=== PATIENT | male | born 1995 | race Caucasian/White ===

== ENCOUNTER 2018-07-26 00:41 | Inpatient (IN) | payer SELFPAY ==
[2018-07-26] MEDS ORDERED: NS 0.9% 1000 ML* 1,000 ML IV ONE (01:44)
[2018-07-26] MEDS ORDERED: Diazepam SYRINGE* 5 MG/ML 2 ML SYRINGE (10 MG total) IV ONE ×2 (01:44→04:16)
[2018-07-26] MEDS ORDERED: Thiamine IV 100 MG, Folic Acid IV* 1 MG, Multiple Vitamin IV ADULT* 10 ML in D5NS 0.9% ... IV ONE (01:44)
[2018-07-26] MEDS ORDERED: Diazepam INJ (NF) 5 MG/ML 10 ML VIAL (50 MG TOTAL) IV ONE (02:10)
--- NOTE | 2018-07-26 02:18 | ED ---
Substance Abuse/Use - HPI Summary HPI Summary: This patient is a 23 year old M presenting to [facility] requesting a detox and states unfortunately I am an alcoholic. Pt states he needs to drink every 6 hours and is currently having withdrawals. Pt states his last drink was at 2000 tonight. The patient rates the pain 0/10 in severity. Patient reports headache, general malaise, and tremors. - History Of Current Complaint Chief Complaint: EDDetoxRequest Stated Complaint: DETOX Time Seen by Provider: 07/26/18 01:24 Hx Obtained From: Patient Onset/Duration of Drug/ETOH Abuse: Years Ingestion History: Type/Name Of Drug - etoh Overdose Characteristics: Oral Timing Of Abuse: Daily Severity Initially: Moderate Severity Currently: Moderate Associated Signs And Symptoms: Other: - headache, general malaise, and tremors. - Allergies/Home Medications Allergies/Adverse Reactions: Allergies Allergy/AdvReac Type Severity Reaction Status Date / Time No Known Allergies Allergy Verified 07/26/18 00:50 PMH/Surg Hx/FS Hx/Imm Hx Endocrine/Hematology History: Denies: Hx Bone Marrow Disease, Hx Systemic Lupus Erythematosus Cardiovascular History: Denies: Hx Atrial Fibrillation, Hx Coronary Artery Disease Respiratory History: Denies: Hx Chronic Obstructive Pulmonary Disease (COPD), Hx Lung Cancer, Hx Pulmonary Edema GI History: Denies: Hx Hiatal Hernia, Hx Irritable Bowel Sensory History: Denies: Hx Macular Degeneration Psychiatric History: Reports: Hx Substance Abuse - etoh Infectious Disease History: No Infectious Disease History: Denies: Traveled Outside the [place] in Last 30 Days - Family History Known Family History: Negative: Respiratory Disease, Seizure Disorder - Social History Alcohol Use: Daily Substance Use Type: Reports: None Smoking Status (MU): Never Smoked Tobacco Review of Systems Positive: Other - general malaise, and tremors. Positive: Headache All Other Systems Reviewed And Are Negative: Yes Physical Exam - Summary Physical Exam Summary: VITAL SIGNS: Reviewed. GENERAL: Patient is a well-developed and nourished male who is lying comfortable in the stretcher. Patient is not in any acute respiratory distress. HEAD AND FACE: No signs of trauma. No ecchymosis, hematomas or skull depressions. No sinus tenderness. EYES: PERRLA, EOMI x 2, No injected conjunctiva, no nystagmus. EARS: Hearing grossly intact. Ear canals and tympanic membranes are within normal limits. MOUTH: Oropharynx within normal limits. NECK: Supple, trachea is midline, no adenopathy, no JVD, no carotid bruit, no c- spine tenderness, neck with full ROM. CHEST: Symmetric, no tenderness at palpation LUNGS: Clear to auscultation bilaterally. No wheezing or crackles. CVS: tachy and regular rhythm, S1 and S2 present, no murmurs or gallops appreciated. ABDOMEN: Soft, non-tender. No signs of distention. No rebound no guarding, and no masses palpated. Bowel sounds are normal. EXTREMITIES: FROM in all major joints, no edema, no cyanosis or clubbing. There is a tremor in outstretched hands NEURO: Alert and oriented x 3. No acute neurological deficits. Speech is normal and follows commands. SKIN: Dry and warm Triage Information Reviewed: Yes Vital Signs On Initial Exam: Initial Vitals Temp Pulse Resp BP Pulse Ox 100.5 F 170 23 165/111 97 07/26/18 00:46 07/26/18 00:46 07/26/18 00:46 07/26/18 00:46 07/26/18 00:46 Vital Signs Reviewed: Yes Diagnostics - Vital Signs Vital Signs Temp Pulse Resp BP Pulse Ox 07/26/18 02:01 89 18 133/88 95 07/26/18 02:00 92 19 95 07/26/18 01:31 133 16 152/103 96 07/26/18 01:02 115 16 96 07/26/18 01:01 123 14 157/115 95 07/26/18 00:46 100.5 F 170 23 165/111 97 - Laboratory Result Diagrams: 07/26/18 02:18 07/26/18 02:17 Lab Statement: Any lab studies that have been ordered have been reviewed, and results considered in the medical decision making process. Course/Dx - Course Assessment/Plan: This patient is a 23 year old M presenting to [facility] requesting a detox and states unfortunately I am an alcoholic. Pt states he needs to drink every 6 hours and is currently having withdrawals. Pt states his last drink was at 2000 tonight. The patient rates the pain 0/10 in severity. Patient reports headache, general malaise, and tremors. The patient is experiencing withdrawal sx with a MANUEL of almost 400 so he will have to be admitted. Blood work obtained. In the ED course the patient was given IV fluids, valium, Ativan , and nicotine. We discussed patient care with Dr Zamarripa and the patient will be admitted. Patient will be admitted. The patient is agreeable with this plan - Diagnoses Provider Diagnoses: Alcohol intoxication - Physician Notifications Discussed Care Of Patient With: Sandra Zamarripa Time Discussed With Above Provider: 04:16 Instructed by Provider To: Admit As Inpatient Discharge - Sign-Out/Discharge Documenting (check all that apply): Patient Departure - admitted - Discharge Plan Condition: Fair Disposition: ADMITTED TO [facility] Referrals: No Primary Care Phys,NOPCP [Primary Care Provider] - - Attestation Statements Document Initiated by Scribe: Yes Documenting Scribe: Antonino Sharp Provider For Whom Scribe is Documenting (Include Credential): Tino Rose MD Scribe Attestation: Antonino Gabriel , scribed for Tino Rose MD on 07/26/18 at 0416.
[2018-07-26 02:26] LABS: ABS Basophils 0.1 10^3/ul (0-0.2); ABS Eosinophils 0 10^3/ul (0-0.6); ABS Lymphocytes 1.7 10^3/ul (1.0-4.8); ABS Monocytes 0.3 10^3/ul (0-0.8); ABS Neutrophils 1.9 10^3/ul (1.5-7.7); ABS Nucleated RBC 0 10^3/ul; Eosinophil % 0.6 % (0-6); Hematocrit 44 % (42-52); Hemoglobin 15.7 g/dl (14.0-18.0); Lymphocyte % 43.2 % (25-47); Mean Corpuscular HGB Conc 36 g/dl (31-36); Mean Corpuscular Hemoglobin 34 pg (27-31); Mean Corpuscular Volume 97 fL (80-94); Mean Platelet Volume 6.9 um3 (7.4-10.4); Nucleated Red Blood Cells % 0.1; Platelet Count 168 10^3/ul (150-450); Red Blood Count 4.57 10^6/ul (4.00-5.40); Red Cell Distribution Width 13 % (10.5-15)
[2018-07-26] MEDS ORDERED: LORazepam INJ* 2 MG/ML 1 ML VIAL ONE (02:33)
[2018-07-26 02:34] LABS: INR 0.89 (0.77-1.02)
[2018-07-26] MEDS ORDERED: LORazepam INJ* 2 MG/ML 1 ML VIAL IV PUSH ONE ×2 (02:35→03:41)
[2018-07-26] MEDS ORDERED: Nicotine PATCH 21 MG/24 HR* PATCH TRANSDERM ONE (02:40)
[2018-07-26 02:45] LABS: EGFR Non-African American 122.6 (>60)
[2018-07-26 02:57] LABS: Urine Appearance Clear; Urine Blood Negative (Negative); Urine Color Yellow; Urine Ketones Negative (Negative); Urine Protein 1+(30 mg/dL) (Negative); Urine Red Blood Cell Trace(0-2/hpf) (Absent); Urine Specific Gravity 1.013 (1.010-1.030); Urine Urobilinogen Negative (Negative); Urine White Blood Cell Absent (Absent)
[2018-07-26] MEDS ORDERED: Diazepam INJ (NF) 5 MG/ML 10 ML VIAL (50 MG TOTAL) IV STA (04:21)
[2018-07-26] MEDS ORDERED: Acetaminophen TAB* 325 MG PO PRN (04:40)
[2018-07-26] MEDS ORDERED: Ondansetron INJ* 2 MG/ML VIAL IV PRN (04:40)
[2018-07-26] MEDS ORDERED: Al Hydrox/Mg Hydrox/Simet LIQ* 30 ML UDC PO PRN (04:40)
[2018-07-26] MEDS ORDERED: Thiamine IV* 100 MG/ML 2 ML VIAL IM ONE (04:48)
[2018-07-26] MEDS ORDERED: Mouth Piece, Nicotine* 1 EACH CARTRIDGE INH PRN ×2 (05:00)
[2018-07-26] MEDS ORDERED: Dexmedetomidine* 400 MCG in NS 0.9% 100 ML* 96 ML IVPB SCH (05:00)
[2018-07-26] MEDS ORDERED: Nicotine Inhaler* 10 MG AMP INH PRN (05:00)
[2018-07-26] MEDS ORDERED: LORazepam INJ* 2 MG/ML 1 ML VIAL IV PUSH SCH (05:00)
[2018-07-26] MEDS: NS 0.9% 1000 ML* 1,000 ML IV SCH ×2 (05:40→13:32)
[2018-07-26] MEDS: LORazepam INJ* 2 MG/ML 1 ML VIAL IV SCH ×2 (05:42→12:42)
[2018-07-26 06:07] LABS: ABS Basophils 0 10^3/ul (0-0.2); ABS Eosinophils 0 10^3/ul (0-0.6); ABS Monocytes 0.4 10^3/ul (0-0.8); ABS Neutrophils 1.6 10^3/ul (1.5-7.7); ABS Nucleated RBC 0 10^3/ul; Eosinophil % 0.6 % (0-6); Hematocrit 42 % (42-52); Hemoglobin 14.6 g/dl (14.0-18.0); Lymphocyte % 49.5 % (25-47); Mean Corpuscular HGB Conc 35 g/dl (31-36); Mean Corpuscular Hemoglobin 34 pg (27-31); Mean Corpuscular Volume 98 fL (80-94); Mean Platelet Volume 6.9 um3 (7.4-10.4); Nucleated Red Blood Cells % 0.2; Platelet Count 163 10^3/ul (150-450); Red Blood Count 4.24 10^6/ul (4.00-5.40); Red Cell Distribution Width 13 % (10.5-15); White Blood Count 4.1 10^3/ul (3.5-10.8)
[2018-07-26 06:18] LABS: EGFR Non-African American 122.6 (>60)
[2018-07-26] MEDS ORDERED: Folic Acid TAB* 1 MG PO SCH (09:00)
[2018-07-26] MEDS ORDERED: Multivitamins/Minerals TAB PO SCH (09:00)
[2018-07-26] MEDS ORDERED: Thiamine TAB* 100 MG TAB PO SCH (09:00)
--- NOTE | 2018-07-26 10:49 | PN ---
Date of Service: 07/26/18 Critical Care Services: 23M with h/o etoh abuse presents with etoh withdrawal. The patient was admitted to the icu and started on precedex drip and ativan prn. 07/26: precedex gtt off and patient sleeping comfortably. Vital Signs: Temp Pulse Resp BP SpO2 FiO2 97.9 F 94 19 120/67 96 07/26/18 07:56 07/26/18 09:30 07/26/18 09:54 07/26/18 09:30 07/26/18 09:30 Physical Exam: Gen - nad HEENT - ncat, eomi, perrl neck - no jvd cv - s1/s2, no murmur pulm - cta, no wheeze abd - soft, nt, nd Ext - no cce neuro - sleeping comfortably. arousable. Fluid Balance (Past 24 Hours): I= O= Net Intake & Output 07/24/18 07/25/18 07/26/18 07/27/18 06:59 06:59 06:59 06:59 Output Total 500 Balance -500 Weight 71.1 kg Output: Urine 500 Labs: Laboratory Results - last 24 hr 07/26/18 07/26/18 07/26/18 02:17 02:17 02:17 WBC RBC Hgb Hct MCV MCH MCHC RDW Plt Count MPV Neut % (Auto) Lymph % (Auto) Carlton % (Auto) Eos % (Auto) Baso % (Auto) Absolute Neuts (auto) Absolute Lymphs (auto) Absolute Monos (auto) Absolute Eos (auto) Absolute Basos (auto) Absolute Nucleated RBC Nucleated RBC % INR (Anticoag Therapy) 0.89 APTT 29.9 Sodium 142 Potassium 3.6 Chloride 106 Carbon Dioxide 26 Anion Gap 10 BUN 5 L Creatinine 0.79 Est GFR ( Amer) 148.4 Est GFR (Non-Af Amer) 122.6 BUN/Creatinine Ratio 6.3 L Glucose 120 H Lactic Acid 1.4 Calcium 8.7 Magnesium 1.8 L Total Bilirubin 0.50 AST 184 H ALT 139 H Alkaline Phosphatase 78 Total Creatine Kinase 66 Total Protein 7.3 Albumin 4.7 Globulin 2.6 Albumin/Globulin Ratio 1.8 Amylase 36 Urine Color Urine Appearance Urine pH Ur Specific [place] Urine Protein Urine Ketones Urine Blood Urine Nitrate Urine Bilirubin Urine Urobilinogen Ur Leukocyte Esterase Urine WBC (Auto) Urine RBC (Auto) Urine Bacteria Hyaline Casts Urine Glucose Serum Alcohol 396 H 07/26/18 07/26/18 07/26/18 02:18 02:43 05:50 WBC 4.0 4.1 RBC 4.57 4.24 Hgb 15.7 14.6 Hct 44 42 MCV 97 H 98 H MCH 34 H 34 H MCHC 36 35 RDW 13 13 Plt Count 168 163 MPV 6.9 L 6.9 L Neut % (Auto) 47.0 39.7 Lymph % (Auto) 43.2 49.5 H Carlton % (Auto) 7.7 H 9.5 H Eos % (Auto) 0.6 0.6 Baso % (Auto) 1.5 0.7 Absolute Neuts (auto) 1.9 1.6 Absolute Lymphs (auto) 1.7 2.0 Absolute Monos (auto) 0.3 0.4 Absolute Eos (auto) 0 0 Absolute Basos (auto) 0.1 0 Absolute Nucleated RBC 0 0 Nucleated RBC % 0.1 0.2 INR (Anticoag Therapy) APTT Sodium Potassium Chloride Carbon Dioxide Anion Gap BUN Creatinine Est GFR ( Amer) Est GFR (Non-Af Amer) BUN/Creatinine Ratio Glucose Lactic Acid Calcium Magnesium Total Bilirubin AST ALT Alkaline Phosphatase Total Creatine Kinase Total Protein Albumin Globulin Albumin/Globulin Ratio Amylase Urine Color Yellow Urine Appearance Clear Urine pH 6.0 Ur Specific [place] 1.013 Urine Protein 1+(30 mg/dl) A Urine Ketones Negative Urine Blood Negative Urine Nitrate Negative Urine Bilirubin Negative Urine Urobilinogen Negative Ur Leukocyte Esterase Negative Urine WBC (Auto) Absent Urine RBC (Auto) Trace(0-2/hpf) Urine Bacteria Absent Hyaline Casts Present A Urine Glucose Negative Serum Alcohol 07/26/18 05:50 WBC RBC Hgb Hct MCV MCH MCHC RDW Plt Count MPV Neut % (Auto) Lymph % (Auto) Carlton % (Auto) Eos % (Auto) Baso % (Auto) Absolute Neuts (auto) Absolute Lymphs (auto) Absolute Monos (auto) Absolute Eos (auto) Absolute Basos (auto) Absolute Nucleated RBC Nucleated RBC % INR (Anticoag Therapy) APTT Sodium 143 Potassium 3.5 Chloride 110 Carbon Dioxide 25 Anion Gap 8 BUN 5 L Creatinine 0.79 Est GFR ( Amer) 148.4 Est GFR (Non-Af Amer) 122.6 BUN/Creatinine Ratio 6.3 L Glucose 95 Lactic Acid Calcium 8.3 L Magnesium 1.7 L Total Bilirubin 0.40 AST 151 H ALT 116 H Alkaline Phosphatase 74 Total Creatine Kinase Total Protein 6.5 Albumin 4.2 Globulin 2.3 Albumin/Globulin Ratio 1.8 Amylase Urine Color Urine Appearance Urine pH Ur Specific [place] Urine Protein Urine Ketones Urine Blood Urine Nitrate Urine Bilirubin Urine Urobilinogen Ur Leukocyte Esterase Urine WBC (Auto) Urine RBC (Auto) Urine Bacteria Hyaline Casts Urine Glucose Serum Alcohol Impression: 23M with h/o etoh abuse presents with alcohol withdrawal Plan: ETOH withdrawal - precedex tritrated off this am - sleeping comfortably - c/w ativan prn - iv hydration - thiamine/folate/mvi - fall/seizure precautions - pt/ot/sw consults - advance diet as tolerated - anti-emetics prn - gi/dvt ppx - full code Possible transfer to floor in afternoon
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
[2018-07-26] MEDS: LORazepam INJ* 2 MG/ML 1 ML VIAL IV PUSH SCH ×2 (12:44→18:00)
[2018-07-26 17:46] VITALS: BP 155/97
--- NOTE | 2018-07-27 16:32 | DS ---
CC: Dr. Ruiz * AGAINST MEDICAL ADVICE DISCHARGE NOTE: DATE OF ADMISSION: 07/26/18 DATE OF DISCHARGE: 07/26/18 PRIMARY CARE PROVIDER: Dr. Ruiz in [place]. MY ATTENDING PHYSICIAN WHILE IN THE HOSPITAL: Dr. Sandra Zamarripa * (report dictated by Jose Luis Clarke NP). PRINCIPAL DIAGNOSIS: Acute alcohol withdrawal. SECONDARY DIAGNOSIS: EtOH abuse. DISCHARGE MEDICATIONS: None. I am wary of starting him on benzos for alcoholism and withdrawal as he clearly states to me that he is going to go home and drink, so I did not prescribe Librium or Ativan. HISTORY OF PRESENT ILLNESS: I refer you to Dr. Zamarripa's H and P for further details. In short, Mr. Dougherty is a 23-year-old male patient that presented to the ER last night. He says he drinks two 24 packs of beer and a bottle of rum a day for the past 1.5 years. He was admitted last night because he was exhibiting signs of alcohol withdrawal. He was admitted to the ICU because he was having significant symptoms of withdrawal. He also did have a mild elevation of his LFTs. He was transferred out of the ICU today, he was started on our WAM protocol. He had been scoring, he basically was diaphoretic and having shakes. He was not hallucinating. He told nursing staff today at shift change around 1700 that he wanted to go home and drink, that he does not want to be here; he has no interest in being here. I did discuss with the patient the risks of going home, that he is at risks for seizures, , permanent disability, and liver damage. He was able to reiterate these risks. He says that he knows that there is a risk for seizure, worsening withdrawal, hallucination, and possibly liver failure. He was able to tell me his name. He was able to tell me that it was July and he says that he is not from the area, but he knows that he is near [facility]. He was able to again tell me the risks of going home. I did offer him staying here for acute inpatient detox with Ativan and WAM protocol. He was not interested. He was very clear, he says that he does not want to be here and he wants to go back to drinking. I did offer him community resources and I offered him to follow up with our social work department to get him help. He is not interested in this and I did offer him the [facility]'s number and I have asked nursing staff to give this to him so that he could have close followup, and I have instructed him that should he change his mind, he is more than welcome to stay tonight. If he has any concerns at home, if he is deteriorating, having any signs of DTs such as hallucinations, shakes, sweating, anxiety, tremor, seizures, or any worrisome symptoms that he is more than welcome to come back to the hospital to be evaluated, but at this point, he is signing out against medical advice. He is not driving. He is going home in the care of his friend, Marilyn. She was not present for conversation, but when she does arrive, we will have the conversation again. Nursing staff have been instructed to have conversation with him and have him sign the AMA paper work as well. I did discuss this with my attending Dr. Zamarripa; she was in agreement. TIME SPENT: On discharge 40 minutes, greater than half the time was spent face- to- face with the patient going over the discharge plan, other half the time was spent implementing the discharge plan. I did discuss the discharge plan with my attending; she is in agreement. JOSE LUIS CLARKE NP [id number]/[facility] #: [id number] ANMOL
== END 2018-07-26 20:00 | disposition left against medical advice (07) | DRG 894 ==
LOC: ED 00:41 → ICU 04:40 → MED 12:27
PROVIDERS: ADMIT Pediatrics; ATTEND Internal Medicine
DX: F10.239 Alcohol dependence with withdrawal, unspecified (principal); F10.229 Alcohol dependence with intoxication, unspecified; F17.210 Nicotine dependence, cigarettes, uncomplicated; R79.89 Other specified abnormal findings of blood chemistry; Z53.21 Procedure and treatment not carried out due to patient leaving prior to being seen by health care provider; I10 Essential (primary) hypertension; R74.0 Nonspecific elevation of levels of transaminase and lactic acid dehydrogenase [LDH]; Z72.89 Other problems related to lifestyle
CPT/HCPCS: 36415; 80053; 80320; 81003; 81015; 82150; 82550; 83605; 83735; 85025; 85610; 85730; 87641; 93005; 99284; A9270-GY; G0480; J2060; J3360; J3411